=== PATIENT | female | born 1995 | race African-American/Black ===

== ENCOUNTER 2017-10-25 18:57 | Emergency (ER) | payer SELFPAY | END 2017-10-25 20:17 | disposition home or self-care (01) | LOC: MADERS 18:57 | DX: Z04.1 Encounter for examination and observation following transport accident (principal); F17.210 Nicotine dependence, cigarettes, uncomplicated; V49.9XXA Car occupant (driver) (passenger) injured in unspecified traffic accident, initial encounter; Y92.488 Other paved roadways as the place of occurrence of the external cause | CPT/HCPCS: 99283 ==